=== PATIENT | female | born 1965 | race Caucasian/White ===

== ENCOUNTER → 2017-02-13 | Outpatient (CLI) | payer MEDICAID ==
[~2017-02-13] MED LIST: ALBUTEROL2.5 MG/NEB IH; ALLERGY RELIEF25 MG PO; APAP W/ CODEINE1 TAB PO; ASPIRIN 81MG TA81 MG PO; ATIVAN GENERIC0.5 MG PO; B COMPLEX & B121 TAB PO; BUSPAR 10MG TAB10 MG PO; BUSPIRONE HCL7.5 MG PO; CALCIUM CARBONA1 TAB PO; CIPRO 500MG TA500 MG PO; CITALOPRAM40 MG PO; FLEXERIL10 MG PO; GENTAMICIN3 MG/GM OP; HYDROCODONE/ACE1 TA5 PO; INDOCIN25 M2 PO; LEXAPRO 20 MG T20 MG PO; MEDROL 4MG. DOSE4 MG PO; MULTI VITAMINS1 TAB PO; MULTIVITAMIN1 TA2 PO; NAPROSYN 500MG500 MG PO; NICOTINE PATCH;21 MG TD; NORCO 325 MG-51 TAB PO; OMEPRAZOLE40 MG PO; PERCOCET 5/3251 EACH PO; PHENERGAN25 M3 PO; PREDNISONE 20MG20 MG PO; PREDNISONE 5MG.5 MG PO; PROVENTIL0.09 MG/AC IH; RISAQUAD1 CA1 PO; ROBITUSSIN DM 105 ML PO; SERTRALINE25 MG PO; SIMVASTATIN10 MG PO; SYMBICORT1 AER IH; SYNTHROID0.025 MG PO; TESSALON PERLE100 MG PO; ULTRAM 50 MG TA50 MG PO; VENLAFAXINE HYD75 M1 PO; VIBRAMYCIN 100100 MG PO; VICODIN 5/500 T1 TAB PO; VISTARIL25 MG PO; VITAMIN B12500 MC1 MM; VOLTAREN75 MG PO; ZITHROMAX 250M250 MG PO; ZOLOFT 50MG TAB50 MG PO
== END ==
LOC: SL 20:00
DX: G47.33 Obstructive sleep apnea (adult) (pediatric) (principal); R31.0 Gross hematuria

== ENCOUNTER → 2017-02-16 | Outpatient (CLI) | payer MEDICAID ==
--- NOTE | 2017-02-16 14:02 | RADIOLOGY REPORT PS360 ---
UGI SERIES W/SMALL BOWEL HISTORY: ABD PAIN,NAUSEA, abnormal CT scan showing distended small bowel ORDERING PHYSICIAN: JAI SALDAÑA MD PATIENT AGE: 52 years COMPARISON: None FINDINGS: There are small diverticula within the posterior lateral aspect the esophagus on both sides at C5 level. No hiatal hernia. There is mild spasm of the cricopharyngeus muscle which does subside. The stomach and duodenum have an unremarkable appearance. No ulcer or mass evident. No mucosal abnormalities apparent. There is normal peristalsis. The duodenal C-loop is nondisplaced. Small bowel: Small bowel is normal in caliber. No obstructing lesions. No mucosal abnormalities. The terminal ileum has an unremarkable appearance. FLUOROSCOPY TIME : 4 minutes and 33 seconds. IMPRESSION: 1. Incidental small upper esophageal diverticula. 2. Otherwise negative upper GI and small bowel follow-through
== END ==
LOC: RAD 08:59
DX: R10.9 Unspecified abdominal pain (principal); R11.0 Nausea

== ENCOUNTER 2017-03-12 17:59 | Emergency (ER) | payer MEDICAID ==
[~2017-03-12] VITALS: Ht 157.5 cm; Wt 54.4 kg
--- NOTE | 2017-03-12 18:47 | Emergency Room Report ---
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 N Clinical Suspician of Infection? N Mental Status: 1 - Regular (Normal Baseline) Sepsis Risk:Low Sepsis Risk Have you (or family members/close friends) recently traveled outside the [place]? N If Yes, where/when: Have you had exposure to infectious disease within the past month? N TB? Other? Specify: Fell down steps today and struck right shoulder, right knee, lower back; no neurological sx; no weakness. No SOB. ALLERGIES Coded Allergies: Sulfa (Sulfonamide Antibiotics) (Intermediate, I-RASH 10/23/16) Home Medications Active Scripts Omeprazole (Omeprazole 40MG) 40 MG PO DAILY 30 Days Prov: 04/27/16 Reported Medications Simvastatin 20 MG PO DAILY Lorazepam (Ativan) 1 MG PO BID Levothyroxine Sodium (Synthroid 0.025MG) 0.05 MG PO QHS VENLAFAXINE HCL (Venlafaxine HCl ER) 75 MG PO DAILY #30 History Medical History General CAD? No Angina: No DC: No Hypertension? No Hyperlipidemia? Yes CHF? No DVT? No PE? No COPD? Yes Asthma? No Anemia? No GERD? No Gastric ulcers? No GI Bleed? No Hernia? No Thyroid Problems? No Hypothyroidism? No CVA? No Seizures? No Diabetes? No Insulin Dependent: No Insulin Pump: No Home FSBS? No Renal Insuffiency? No End Stage Renal Disease? No UTI? No Stones? No BPH? No GB Disease: Yes Nephritic Syndrome? No Asplenia? No Hepatitis? No Sickle Cell Disease? No Arthritis? No Migraines? No Cataracts? No Glaucoma? No MRSA? No HIV? No TB? No Anxiety? Yes Depression? Yes Cancer? No More? 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 Family History Family Hx Diabetes No CAD No Hypertension Yes Hyperlipidemia Yes Cancer Yes TB No Social History Smoking Hx Smoker: Current Every Day Smoker Tobacco: Yes Type Cigarettes Packs/day < 1 Pack Alcohol Alcohol: No Review of Systems All Other Systems Reviewed and Negative Musculoskeletal see HPI Psychiatric/Neurological denies no symptoms reported Physical Exam Vital Signs Vital Signs Date Time Temp Pulse Resp B/P Pulse O2 O2 Flow FiO2 Ox Delivery Rate 03/12 1804 98.2 85 16 112/70 98 General Appearance normal appearance, WD/WN, no apparent distress Eye Exam - bilateral eye normal exam, bilateral eye PERRL, bilateral eye EOMI Neck normal inspection, non-tender, supple, full range of motion Respiratory Status Yes: trachea midline, chest symmetrical, non tender chest. No: respiratory distress, tender on palpation, use of accessory muscles, pain on inspiration, pain on expiration, productive cough, non productive cough (mild R shoulder/ scapula pain). Lung Sounds bilateral: normal breath sounds, lungs clear. Cardiovascular normal exam, regular rate/rhythm, no peripheral edema, no gallop, no JVD, no murmur, no rub, normal peripheral pulses Gastrointestinal normal bowel sounds, normal exam, non tender, soft, no organomegaly, no pulsatile mass, no guarding, no rebound Back normal inspection, no vertebral tenderness, bowel/bladder continent, strt leg raising(L)-NML, strt leg raising(R)-NML, diffuse lower lumbar pain Extremities non-tender, normal range of motion, normal inspection, normal capillary refill, pelvis stable, minor abrasion, right knee, with no laxity, deformity or stepoffs; pelvis stable to AP and lateral palpation; no pain over rotator cuff on right but subjectively a little bit of diffuse shoulder pain extending to scapula area with no crepitus, deformities, or stepoffs noted. Strength 5 Upper Ext (L), 5 Upper Ext (R), 5 Lower Ext (L), 5 Lower Ext (R) Neurologic alert, normal exam, no motor/sensory deficits, oriented x 3 Glascow Coma Scale Glascow Coma Scale Response Value EYE response: 4 Spontaneously 4 MOTOR response: 6 OBEYS 6 VERBAL response: 5 Oriented & Converses 5 Total 15 Skin intact, normal color, warm/dry Medical Decision Making LABS/Meds/Orders Pt receiving controlled substance in ED? No Results/Orders Orders Procedure Date/time Status CHEST-PORTABLE 03/12 1851 Active PELVIS AP ONLY 03/12 1809 Active QJD-[id number]-JF-UNI-3 VIEWS 03/12 1808 Active LUMBAR SPINE 5 VIEWS 03/12 1808 Active KNEE-3 VIEWS-RT 03/12 1808 Active XRAY/CT/US XRAY/CT/US XRAY chest, knee, pelvis, shoulder XR interpretation by reviewed by me Xray Results no fracture seen, normal lung inflation shawn (pos DJD; pin R shoulder) Departure Departure Time of Disposition 1920 Disposition DC Home or Self Care(routine) Clinical Impression Primary Impression: Multiple contusions Secondary Impressions: Fall Qualifiers: Encounter type: initial encounter Qualified Code: W19.XXXA - Unspecified fall, initial encounter Condition STABLE Referrals GINNY SHETTY, NEDA (Family) Patient Instructions Contusion Additional Instructions Rx Naproxen, see Neda tomorrow for recheck Discharge Counseling Counseled pt/family regarding diagnosis, test results, medications/RX, home care, follow up needs Prescriptions Current Visit Scripts NAPROXEN (NAPROXEN 500MG TAB) 500 MG PO BIDP PRN pain #20 TAB ED Critical Care Critical Care No at 1928
[2017-03-12] MEDS ORDERED: NAPROXEN SODIU500 MG PO (19:26)
--- NOTE | 2017-03-12 19:45 | RADIOLOGY REPORT PS360 ---
PELVIS AP ONLY HISTORY: Fall with injury and pain FALL ORDERING PHYSICIAN: Franci Pratt MD PATIENT AGE: 52 years COMPARISON: None FINDINGS: No fracture or dislocation is evident. No significant degenerative change. No lytic or blastic change. The SI joints have an unremarkable appearance. Unremarkable soft tissues. Nonspecific density is present in the right lower quadrant and could be due to contrast within diverticulum or calcification. IMPRESSION: No acute finding
--- NOTE | 2017-03-12 19:51 | RADIOLOGY REPORT PS360 ---
FVI-[id number]-MY-UNI-3 VIEWS HISTORY: Pain following injury FALL WITH PAIN ORDERING PHYSICIAN: Franci Pratt MD PATIENT AGE: 52 years COMPARISON: None FINDINGS: No fracture or dislocation. No lytic or blastic change. There is normal mineralization. The joint spaces are well-preserved. No significant degenerative/arthritic changes. No erosive changes evident. An anchor screw is present in the humeral head. There is mild subacromial stenosis. IMPRESSION: 1. No acute finding. 2. Subacromial stenosis with postsurgical change
--- NOTE | 2017-03-12 19:53 | RADIOLOGY REPORT PS360 ---
EXAM: LUMBAR SPINE 5 VIEWS HISTORY: FALL WITH PAIN ORDERING PHYSICIAN: Franci Pratt MD PATIENT AGE: 52 years COMPARISON: None FINDINGS: Normal alignment. No fracture or dislocation. No lytic or blastic change. No significant degenerative change. The disc spaces are preserved. There is anterior angulation of the lower sacrum. This however was present on the previous CT scan of 02/08/2017 IMPRESSION: No acute finding
--- NOTE | 2017-03-12 19:53 | RADIOLOGY REPORT PS360 ---
KNEE-3 VIEWS-RT HISTORY: FALL WITH PAIN ORDERING PHYSICIAN: Franci Pratt MD PATIENT AGE: 52 years COMPARISON: None FINDINGS: No fracture or dislocation. No lytic or blastic change. Normal mineralization. No significant arthritic changes evident. No other significant findings IMPRESSION: Negative Knee
--- NOTE | 2017-03-12 19:54 | RADIOLOGY REPORT PS360 ---
CHEST-PORTABLE HISTORY: Chest pain following injury fell ORDERING PHYSICIAN: Franci Pratt MD PATIENT AGE: 52 years COMPARISON: 10/23/2016 FINDINGS: The cardiomediastinal silhouette and pulmonary vascularity are within normal limits. The lungs are clear without infiltrates, suspicious nodules, or pleural effusions. No acute bony abnormalities. IMPRESSION: Negative chest, no acute finding
[2017-03-12 20:14] VITALS: BP 112/73
== END 2017-03-12 20:15 | disposition home or self-care (01) ==
LOC: ER 17:59
DX: S80.01XA Contusion of right knee, initial encounter (principal); S40.011A Contusion of right shoulder, initial encounter; S30.0XXA Contusion of lower back and pelvis, initial encounter; W10.9XXA Fall (on) (from) unspecified stairs and steps, initial encounter; Y92.9 Unspecified place or not applicable; E78.5 Hyperlipidemia, unspecified; Z79.899 Other long term (current) drug therapy

== ENCOUNTER → 2017-03-29 | Outpatient (CLI) | payer MEDICAID ==
[~2017-03-29] MED LIST changes: +NAPROXEN SODIU500 MG PO
[2017-03-29 18:02] LABS: HEMOGLOBIN 15.2 g/dL (12.2-16.2); LYMPH # 2.1 K/mm3 (0.7-4.5); LYMPH % 29.8 % (10-50.0)
[2017-03-29 18:59] LABS: BUN 9 mg/dL (7-18)
[2017-03-29 19:22] LABS: GFR (ESTIMATED) 105 ML/MIN (59-)
[2017-03-31 08:40] LABS: Folate (Folic Acid) 4.8 ng/mL (>3.0); RA Latex Turbid. <10.0 IU/mL (0.0-13.9); Vitamin B12 270 pg/mL (211-946); Vitamin D, 25-Hydroxy 49.6 ng/mL (30.0-100.0)
[2017-04-01 10:35] LABS: PTT-LA 42.1 sec (0.0-51.9); dRVVT 35.9 sec (0.0-47.0)
[2017-04-01 12:39] LABS: Lupus Reflex Interpretation Comment: (.)
[2017-04-02 14:40] LABS: Anti-DNA (DS) Ab Qn 2 IU/mL (0-9)
[2017-04-03 03:37] LABS: CCP Antibodies IgG/IgA 3 units (0-19)
[2017-04-06 16:40] LABS: Antinuclear Antibodies, IFA Positive (.)
== END ==
LOC: LAB 16:23
PROVIDERS: Physician Assistant
DX: R53.82 Chronic fatigue, unspecified (principal); R60.9 Edema, unspecified; E03.9 Hypothyroidism, unspecified; E55.9 Vitamin D deficiency, unspecified

== ENCOUNTER 2017-04-12 21:13 | Emergency (ER) | payer MEDICAID ==
[~2017-04-12] VITALS: Ht 157.5 cm; Wt 54.4 kg
--- NOTE | 2017-04-12 21:36 | Emergency Room Report ---
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 N Clinical Suspician of Infection? N Mental Status: 1 - Regular (Normal Baseline) Sepsis Risk:Low Sepsis Risk Have you (or family members/close friends) recently traveled outside the [place]? N If Yes, where/when: Have you had exposure to infectious disease within the past month? N TB? Other? Specify: Source patient, RN notes reviewed, old records Exam Limitations no limitations Comment pt with trip injury a couple of days ago with sts and tenderness lt post lower leg and lt foot with no other c/o Cardiac Chest Pain Chest pain indicative of cardiac No Timing/Duration this evening Severity moderate ALLERGIES Coded Allergies: Sulfa (Sulfonamide Antibiotics) (Intermediate, I-RASH 10/23/16) Home Medications Active Scripts Omeprazole (Omeprazole 40MG) 40 MG PO DAILY 30 Days Prov: 04/27/16 Discontinued Scripts NAPROXEN (NAPROXEN 500MG TAB) 500 MG PO BIDP PRN pain #20 TAB Prov: 03/12/17 DC: 04/10/17 0000 Reported Medications Simvastatin 20 MG PO DAILY Lorazepam (Ativan) 1 MG PO BID Levothyroxine Sodium (Synthroid 0.025MG) 0.05 MG PO QHS VENLAFAXINE HCL (Venlafaxine HCl ER) 75 MG PO DAILY #30 History Medical History General CAD? No Angina: No VA: No Hypertension? No Hyperlipidemia? Yes CHF? No DVT? No PE? No COPD? Yes Asthma? No Anemia? No GERD? No Gastric ulcers? No GI Bleed? No Hernia? No Thyroid Problems? No Hypothyroidism? No CVA? No Seizures? No Diabetes? No Insulin Dependent: No Insulin Pump: No Home FSBS? No Renal Insuffiency? No End Stage Renal Disease? No UTI? No Stones? No BPH? No GB Disease: Yes Nephritic Syndrome? No Asplenia? No Hepatitis? No Sickle Cell Disease? No Arthritis? No Migraines? No Cataracts? No Glaucoma? No MRSA? No HIV? No TB? No Anxiety? Yes Depression? Yes Cancer? No More? 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 Respiratory denies cough, denies shortness of breath, denies wheezing Cardiovascular denies chest pain, denies syncope Gastrointestinal denies abdominal pain, denies diarrhea, denies vomiting Genitourinary denies: dysuria, frequency, hesitancy, hematuria. Musculoskeletal see HPI, denies back pain, joint pain, denies joint swelling, denies neck pain Skin denies rash Psychiatric/Neurological denies headache, denies seizure Physical Exam Vital Signs Vital Signs Date Time Temp Pulse Resp B/P Pulse O2 O2 Flow FiO2 Ox Delivery Rate 04/12 2118 98.2 81 18 134/85 97 - WBC >12,000 or <4,000 or 10% bands? 2 or more SIRS Criteria Met? B/P:134/85 MAP:101 Creatinine >2.0? UA output<0.5ml/kg/hr for 2 hrs? Platelet count >100,000? Lactate >2.0mmol/1? INR >1.2 or PTT > than 60 sec? Evidence of Organ Dysfunction? Provider documented clinical suspician of infection? N Sepsis Criteria Count: 0 Sepsis Risk: Low Sepsis Risk General Appearance no apparent distress Eye Exam - bilateral eye PERRL, bilateral eye EOMI Ear, Nose, Throat normal ENT inspection Neck supple Respiratory Status No: respiratory distress. 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 No Results/Orders Orders Procedure Date/time Status LOWER LEG-LT 04/12 2135 Active FOOT-LT-3 VIEWS 04/12 2135 Active XRAY/CT/US XRAY/CT/US XRAY foot, leg XR interpretation by reviewed by me Xray Results no fracture seen Departure Departure Time of Disposition 2201 Disposition DC Home or Self Care(routine) Clinical Impression Primary Impression: Splinter of lower extremity Qualifiers: Encounter type: initial encounter Laterality: left Qualified Code: S80.852A - Superficial foreign body, left lower leg, initial encounter Secondary Impressions: Sprain of foot, left Qualifiers: Encounter type: initial encounter Qualified Code: S93.602A - Unspecified sprain of left foot, initial encounter Condition STABLE Referrals ZECHARIAH TORRES DPM Patient Instructions DI for Foot Sprain Additional Instructions wt bearing as all and see podiatry and pcp for follow up Discharge Counseling Counseled pt/family regarding diagnosis, test results, follow up needs ED Critical Care Critical Care No at 2208
--- NOTE | 2017-04-12 21:36 | Emergency Room Report ---
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 N Clinical Suspician of Infection? N Mental Status: 1 - Regular (Normal Baseline) Sepsis Risk:Low Sepsis Risk Have you (or family members/close friends) recently traveled outside the [place]? N If Yes, where/when: Have you had exposure to infectious disease within the past month? N TB? Other? Specify: Source patient, RN notes reviewed, old records Exam Limitations no limitations Comment pt with trip injury a couple of days ago with sts and tenderness lt post lower leg and lt foot with no other c/o Cardiac Chest Pain Chest pain indicative of cardiac No Timing/Duration this evening Severity moderate ALLERGIES Coded Allergies: Sulfa (Sulfonamide Antibiotics) (Intermediate, I-RASH 10/23/16) Home Medications Active Scripts Omeprazole (Omeprazole 40MG) 40 MG PO DAILY 30 Days Prov: 04/27/16 Discontinued Scripts NAPROXEN (NAPROXEN 500MG TAB) 500 MG PO BIDP PRN pain #20 TAB Prov: 03/12/17 DC: 04/10/17 0000 Reported Medications Simvastatin 20 MG PO DAILY Lorazepam (Ativan) 1 MG PO BID Levothyroxine Sodium (Synthroid 0.025MG) 0.05 MG PO QHS VENLAFAXINE HCL (Venlafaxine HCl ER) 75 MG PO DAILY #30 History Medical History General CAD? No Angina: No MS: No Hypertension? No Hyperlipidemia? Yes CHF? No DVT? No PE? No COPD? Yes Asthma? No Anemia? No GERD? No Gastric ulcers? No GI Bleed? No Hernia? No Thyroid Problems? No Hypothyroidism? No CVA? No Seizures? No Diabetes? No Insulin Dependent: No Insulin Pump: No Home FSBS? No Renal Insuffiency? No End Stage Renal Disease? No UTI? No Stones? No BPH? No GB Disease: Yes Nephritic Syndrome? No Asplenia? No Hepatitis? No Sickle Cell Disease? No Arthritis? No Migraines? No Cataracts? No Glaucoma? No MRSA? No HIV? No TB? No Anxiety? Yes Depression? Yes Cancer? No More? 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 Respiratory denies cough, denies shortness of breath, denies wheezing Cardiovascular denies chest pain, denies syncope Gastrointestinal denies abdominal pain, denies diarrhea, denies vomiting Genitourinary denies: dysuria, frequency, hesitancy, hematuria. Musculoskeletal see HPI, denies back pain, joint pain, denies joint swelling, denies neck pain Skin denies rash Psychiatric/Neurological denies headache, denies seizure Physical Exam Vital Signs Vital Signs Date Time Temp Pulse Resp B/P Pulse O2 O2 Flow FiO2 Ox Delivery Rate 04/12 2118 98.2 81 18 134/85 97 - WBC >12,000 or <4,000 or 10% bands? 2 or more SIRS Criteria Met? B/P:134/85 MAP:101 Creatinine >2.0? UA output<0.5ml/kg/hr for 2 hrs? Platelet count >100,000? Lactate >2.0mmol/1? INR >1.2 or PTT > than 60 sec? Evidence of Organ Dysfunction? Provider documented clinical suspician of infection? N Sepsis Criteria Count: 0 Sepsis Risk: Low Sepsis Risk General Appearance no apparent distress Eye Exam - bilateral eye PERRL, bilateral eye EOMI Ear, Nose, Throat normal ENT inspection Neck supple Respiratory Status No: respiratory distress. 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 No Results/Orders Orders Procedure Date/time Status LOWER LEG-LT 04/12 2135 Active FOOT-LT-3 VIEWS 04/12 2135 Active XRAY/CT/US XRAY/CT/US XRAY foot, leg XR interpretation by reviewed by me Xray Results no fracture seen Departure Departure Time of Disposition 2201 Disposition DC Home or Self Care(routine) Clinical Impression Primary Impression: Splinter of lower extremity Qualifiers: Encounter type: initial encounter Laterality: left Qualified Code: S80.852A - Superficial foreign body, left lower leg, initial encounter Secondary Impressions: Sprain of foot, left Qualifiers: Encounter type: initial encounter Qualified Code: S93.602A - Unspecified sprain of left foot, initial encounter Condition STABLE Referrals ZECHARIAH TRORES DPM Patient Instructions DI for Foot Sprain Additional Instructions wt bearing as all and see podiatry and pcp for follow up Discharge Counseling Counseled pt/family regarding diagnosis, test results, follow up needs ED Critical Care Critical Care No at 2208
[2017-04-12 22:32] VITALS: BP 134/85
--- NOTE | 2017-04-13 04:19 | RADIOLOGY REPORT PS360 ---
LOWER LEG-LT HISTORY: Posttraumatic pain injury ORDERING PHYSICIAN: Patrick Anderson MD PATIENT AGE: 52 years COMPARISON: None FINDINGS: No fracture or dislocation. No lytic or blastic change. There is normal mineralization. The joint spaces are well-preserved. No significant degenerative/arthritic changes. No erosive changes evident. IMPRESSION: Negative, no acute finding
--- NOTE | 2017-04-13 04:20 | RADIOLOGY REPORT PS360 ---
FOOT-LT-3 VIEWS HISTORY: Posttraumatic pain injury ORDERING PHYSICIAN: Patrick Anderson MD PATIENT AGE: 52 years COMPARISON: None FINDINGS: No fracture or dislocation. No lytic or blastic change. There is normal mineralization.. The joint spaces are well-preserved. No significant degenerative/arthritic changes. No erosive changes evident. IMPRESSION: Negative left foot, no acute finding
--- OUTSIDE RECORDS SUMMARY | 2017-04-14 18:19 | External Medical Summary Rpt | CCD ---
Author Author , RORY VALADEZ Address Unknown Phone Immunization Name Date Rout CVX Reac Dose Comm Prov Is Faci e tion ent ider Refu lity Give sed n Infl 09-2 Intr 0.5 Hist GSHA No GSHA uenz 8-20 amus mL oric NE NE a 17 cula al Quad r Info rmat W/Pr ion es - Sour ce Unsp ecif ied PCV1 09-2 Intr 133 0.5 Hist GSHA No GSHA 3 8-20 amus mL oric NE NE 17 cula al r Info rmat ion - Sour ce Unsp ecif ied
--- OUTSIDE RECORDS SUMMARY | 2017-04-14 18:19 | External Medical Summary Rpt | CCD ---
Demographics Preferred Language Austrian Marital Status Unknown Mormonism Affiliation Unknown Race Unknown Ethnic Group Unknown Author Author NALLELY Address Unknown Phone [email or web address] Purpose Continuity of Care Document - through 2016
--- OUTSIDE RECORDS SUMMARY | 2017-04-14 18:19 | External Medical Summary Rpt | CCD ---
Author Author , RORY VALADEZ Address Unknown Phone [email or web address] Immunization Name Date Rout CVX Reac Dose [...]
--- OUTSIDE RECORDS SUMMARY | 2017-04-14 18:19 | External Medical Summary Rpt | CCD ---
Author Author , RORY VALADEZ Address Unknown Phone Care Team Providers Care Manual Qa Tester Name Role Phone Nimesh Tyler MD, Unavailable Unavailable Nimesh Anderson MD, Unavailable Unavailable Patrick Anderson MD Purpose Continuity of Care Document - 10-15-2012 through 2016 Problems Code Diagnosis DOS Provider Status 305.1 305.1 12-31-2012 [place] TOBACCO USE [facility] 786.50 786.50 12-31-2012 [place] CHEST PAIN [facility] 511.0 511.0 10-15-2012 [place] PLEURISY [facility] W/O [facility] OR TB Allergies, Adverse Reactions, Alerts Type Drug Allergy Adverse Reaction to Substance Substance Reaction Severity SULFA (sulfonamide) I-RASH Unknown Medications Na ND Rx Da Fi Fi Am Da Di Ph RX Ph St me C No te ll ll ou ys ag ar # ys at rm s nt no ma ic us Or Da si cy ia de te s n re d 63 07 0 No PI 73 -0 RI 90 2- Lo N 43 20 ng 81 40 13 er 1 MG Ac ti CH ve EW AB LE TA BL ET Vital Signs 12-31-2012 03:47 Name Value Interpretat Reference Comment ion Range BP 75 mm[Hg] Diastolic BP Systolic 114 mm[Hg] Heart 71 /min Rate/Pulse O2% 97 % Respiratory 20 /min Rate 12-31-2012 00:41 Name Value Interpretat Reference Comment ion Range BP 89 mm[Hg] Diastolic BP Systolic 141 mm[Hg] Heart 70 /min Rate/Pulse O2% 98 % Respiratory 20 /min Rate 10-15-2012 18:48 Name Value Interpretat Reference Comment ion Range Body 98.7 [degF] Temperature BP 73 mm[Hg] Diastolic BP Systolic 123 mm[Hg] Heart 72 /min Rate/Pulse O2% 92 % Respiratory 20 /min Rate 10-15-2012 18:27 Name Value Interpretat Reference Comment ion Range BP 81 mm[Hg] Diastolic BP Systolic 121 mm[Hg] Heart 88 /min Rate/Pulse O2% 94 % Respiratory 20 /min Rate Results Labs Lab Lab Date Result Refere Interp Status Commen Order Detail nces retati t Range on Serum or plasma 25-hydroxyvitamin D malik (03-29-2017 16:25) Serum 2 = 49.6 30.0-10 complet or 017 ng/mL 0.0 ed plasma 16:25 25-hydr oxyvita min D malik Comment: Vitamin D deficiency has been defined by the [place] of Comment: Medicine and an Endocrine Society practice guideline as a Comment: level of serum 25-OH vitamin D less than 20 ng/mL (1,2). Comment: The Endocrine Society went on to further define vitamin D Comment: insufficiency as a level between 21 and 29 ng/mL (2). Comment: 1. IOM ([place] of Medicine). 2010. Dietary reference Comment: intakes for calcium and D. [place]: The Comment: [employer]. Comment: 2. Bayron MF, Gorge WORRELL, Teena GOODE, et al. Comment: Evaluation, treatment, and prevention of vitamin D Comment: deficiency: an Endocrine Society clinical practice Comment: guideline. JCEM. 2010; 96(7):1911-30. Serum or plasma rheumatoid factor measur (03-29-2017 16:25) Serum < 10.0 0.0-13. complet or 017 IU/mL 9 ed plasma 16:25 rheumat oid factor measur Lupus Anticoagulant Reflex (03-29-2017 16:25) Lupus = 42.1 0.0-51. complet anticoa 017 sec 9 ed gulant- 16:25 sensiti ve activat ed Lupus Comment . complet anticoa 017 : ed gulant 16:25 Comment [interp : L retatio n] in Comment: No lupus anticoagulant was detected. Comment: Performed at: [facility] Comment: [address], [place] [id number] Comment: Process Improvement Engineer: John Villafana MD, Phone: [phone] Dilute = 35.9 0.0-47. complet Vinod 017 sec 0 ed viper 16:25 venom time Comment: Performed at: [facility] Comment: [address], [place] [id number] Comment: Process Improvement Engineer: John Villafana MD, Phone: [phone] Serum or plasma folate measurement (mass (03-29-2017 16:25) Serum = 4.8 >3.0 complet or 017 ng/mL ed plasma 16:25 folate measure ment (mass Comment: Comment: A serum folate concentration of less than 3.1 ng/mL is Comment: considered to represent clinical deficiency. CCP IgG + IgA serum ROLAND (03-29-2017 16:25) CCP IgG = 3 0-19 complet + IgA 017 units ed serum 16:25 ROLAND Comment: Negative <20 Comment: Weak positive 20 - 39 Comment: Moderate positive 40 - 59 Comment: Strong positive >59 Comment: Performed at: [facility] Comment: [address], [place] [id number] Comment: Process Improvement Engineer: John Villafana MD, Phone: [phone] Vitamin B12 ser/plas (03-29-2017 16:25) Vitamin = 270 211-946 complet B12 017 pg/mL ed ser/jl 16:25 s Comment: Performed at: [facility] Comment: [address], [place] [id number] Comment: Process Improvement Engineer: Vega Burdick PhD, Phone: [phone] Antinuclear Antibodies, IFA (03-29-2017 16:25) Serum = . complet nuclear 017 Positiv ed 16:25 e antibod y titer by immunof l Comment: Negative <1:80 Comment: Borderline 1:80 Comment: Positive >1:80 Serum 1 : 640 . complet speckle 017 ed d 16:25 pattern antinuc lear antib Comment: Dense Fine Speckled pattern is noted. This pattern suggests Comment: the presence of DFS70 antibody which has a low prevalence Comment: in systemic autoimmune rheumatic diseases. Note: Comment . complet 017 ed 16:25 Comment: Comment: A positive DARIN result may occur in healthy individuals (low Comment: titer) or be associated with a variety of diseases. See Comment: interpretation chart which is not all inclusive: Comment: Comment: Pattern Antigen Detected Suggested Disease Association Comment: -------- Comment: Homogeneous DNA(ds,ss), SLE - High titers Comment: Nucleosomes, Comment: Histones Drug-induced SLE Comment: -------- Comment: Speckled Sm, TRAY ROOM WORKER, SCL-70, SLE,MCTD,PSS (diffuse form), Comment: SS-A/SS-B Sjogrens Comment: -------- Comment: Nucleolar SCL-70, PM-1/SCL High titers Scleroderma, Comment: PM/DM Comment: -------- Comment: Centromere Centromere PSS (limited form) w/Crest Comment: syndrome variable Comment: -------- Comment: Nuclear Dot [id number] Primary Biliary Cirrhosis Comment: -------- Comment: Nuclear GP210, Primary Biliary Cirrhosis Comment: Membrane doris A,B,C Comment: -------- Comment: Performed at: [facility] Comment: [address] [place] [address], [place] [id number] Comment: Process Improvement Engineer: Vega Burdick PhD, Phone: [phone] Serum DNA double strand antibody assay ( (03-29-2017 16:25) Serum = 2 0-9 complet DNA 017 IU/mL ed double 16:25 strand antibod y assay ( Comment: Negative <5 Comment: Equivocal 5 - 9 Comment: Positive >9 Comment: Performed at: [facility] Comment: [address], [place] [id number] Comment: Process Improvement Engineer: Vega Burdick PhD, Phone: [phone] COMPREHENSIVE METABOLIC PANEL (12-31-2012 00:19) Glucose 123 74-106 complet 013 mg/dL ed Bld-mCn 00:19 c BUN 14 7-18 complet Bld-mCn 013 mg/dL ed c 00:19 Creat 0.7 0.6-1.0 complet SerPl-m 013 mg/dL ed Cnc 00:19 ESTIMAT 85 50-200 complet ED 013 ML/MIN ed CREATIN 00:19 INE CLEARAN CE GFR 90 59- complet (ESTIMA 013 ML/MIN ed KAREL) 00:19 Sodium 137 136-145 complet SerPl-s 013 mmoL/L ed Cnc 00:19 Potassi 3.7 3.5-5.1 complet um 013 mmoL/L ed SerPl-s 00:19 Cnc Chlorid 102 98-107 complet e 013 mmoL/L ed SerPl-s 00:19 Cnc CO2 27 21.0-32 complet SerPl-s 013 mmoL/L .0 ed Cnc 00:19 Calcium 8.1 8.5-10. complet 013 mg/dL 1 ed SerPl-m 00:19 Cnc Prot 07-02-2 6.1 6.4-8.2 complet SerPl-m 013 gm/dL ed Cnc 00:19 Albumin -02-2 3.6 3.4-5.0 complet 013 gm/dL ed SerPl-m 00:19 Cnc Globuli 12-31-2 2.5 1.3-3.2 complet n 013 gm/dL ed Ser-mCn 00:19 c Albumin 12-31-2 1.4 UNK 1.1-1.8 complet /Glob 013 ed SerPl-m 00:19 Rto Bilirub 12-31-2 0.2 0.2-1.0 complet 013 mg/dL ed SerPl-m 00:19 Cnc AST 12-31-2 17 U/L 15-37 complet SerPl-c 013 ed Cnc 00:19 ALT 12-31-2 41 U/L 30-65 complet SerPl-c 013 ed Cnc 00:19 ALP --2 81 U/L 50-136 complet SerPl-c 013 ed Cnc 00:19 Amylase SerPl-cCnc (12-31-2012 00:19) Amylase 12-31-2 77 U/L 25-115 complet 013 ed SerPl-c 00:19 Cnc LIPASE (12-31-2012 00:19) LIPASE 12-31-2 172 U/L 73-393 complet 013 ed 00:19 CBC with AUTO DIFF (12-31-2012 00:19) WBC # 07-02-2 10.0 4.8-10. complet Bld 013 K/MM3 8 ed Auto 00:19 RBC # 07-02-2 4.14 4.2-5.4 complet Bld 013 M/mm3 ed Auto 00:19 Hgb 07-02-2 13.5 12.2-16 complet Bld-mCn 013 g/dL .2 ed c 00:19 Hct Fr 12-31-2 40.0 % 37.0-47 complet Bld 013 .0 ed 00:19 MCV RBC 07--2 96.6 fl 82.2-97 complet 013 .8 ed 00:19 MCH RBC 07-02-2 32.6 pg 27-31.2 complet Qn 013 ed Auto 00:19 MEAN 02-2 33.8 31.8-35 complet CORPUSC 013 g/dl .4 ed ULAR 00:19 HGB CONC RDW RBC 07-02-2 13.3 % 11.5-17 complet Auto 013 .5 ed 00:19 Platele 07-02-2 276 142-424 complet t Bld 013 K/mm3 ed Ql 00:19 Manual MEAN 07-02-2 7.0 fl 7.4-10. complet PLATELE 013 4 ed T 00:19 VOLUME Granulo 07-02-2 68.8 % 37.0-80 complet cytes 013 .0 ed Fr Bld 00:19 Auto LYMPH % 07-02-2 23.4 % 10-50.0 complet 013 ed 00:19 Monocyt 07-02-2 6.0 % 1.7-9.3 complet es Fr 013 ed Bld 00:19 Auto Eosinop 07-02-2 1.5 % 0.1-12. complet hil Fr 013 0 ed Bld 00:19 Auto Basophi 07-02-2 0.4 % 0.1-2.0 complet ls Fr 013 ed Bld 00:19 Auto Granulo 07-02-2 6.9 1.8-7.8 complet cytes # 013 K/mm3 ed Bld 00:19 Auto Lymphoc 07-02-2 2.4 0.7-4.5 complet ytes Fr 013 K/mm3 ed Bld 00:19 Auto Monocyt 07-02-2 0.6 0.1-1.0 complet es # 013 K/mm3 ed Bld 00:19 Auto Eosinop 07-02-2 0.2 0.0-0.4 complet hil # 013 K/mm3 ed Bld 00:19 Auto Basophi 07-02-2 0.0 0-0.2 complet ls # 013 K/MM3 ed Bld 00:19 Auto URINALYSIS/COMPLETE (10-15-2012 17:35) URINE -16-2 YELLOW YELLOW complet COLOR 013 ed 17:35 URINE -16-2 CLEAR CLEAR complet APPEARA 013 ed NCE 17:35 URINE -16-2 NEGATIV NEG complet GLUCOSE 013 E ed - 17:35 DIPSTIC K URINE -16-2 NEGATIV NEG complet BILIRUB 013 E ed IN - 17:35 DIPSTIC K URINE -16-2 NEGATIV NEG complet KETONE 013 E mg/dL ed 17:35 URINE 04-16-2 1.020 1.005-1 complet SPECIFI 013 UNK .030 ed C 17:35 GRAVITY URINE 16-2 TRACE-I NEG complet BLOOD 013 NTACT ed 17:35 URINE -16-2 6.0 UNK 5.0-8.5 complet PH 013 ed 17:35 URINE -16-2 NEGATIV NEG complet PROTEIN 013 E mg/dL ed - 17:35 DIPSTIC K URINE 16-2 0.2 NEG complet UROBILI 013 E.U./dL ed NOGEN - 17:35 DIPSTIC K URINE 16-2 NEGATIV NEG complet NITRATE 013 E ed - 17:35 DIPSTIC K URINE 16-2 NEGATIV NEG complet LEUK 013 E ed ESTERAS 17:35 E URINE 16-2 OCC 0 complet RBC 013 rbc/hpf ed 17:35 URINE 16-2 3-5 0-5 complet SQUAMOU 013 #/hpf ed S CELLS 17:35 URINE 16-2 TRACE O complet BACTERI 013 ed A 17:35 Encounters Encounter Start End Date Code Location Performer Type Date Emergency ROMAINE Anderson MD (ER) 3 00:05 3 03:55 [facility] Emergency ROMAINE Tyler MD (ER) 3 17:56 3 18:51 [facility]
--- OUTSIDE RECORDS SUMMARY | 2017-04-14 18:19 | External Medical Summary Rpt | CCD ---
Author Author , RORY VALADEZ Address Unknown Phone [email or web address] Care Team Providers Care Field Cane Scaler Helper Name Role Phone Nimesh Tyler MD, Unavailable Unavailable Nimesh Anderson MD, Unavailable Unavailable Patrick Anderson MD Purpose Continuity of Care Document - 10-15-2012 through 2016 Problems Code Diagnosis DOS Provider Status 305.1 305.1 12-31-2012 [place] TOBACCO USE [facility] 786.50 786.50 12-31-2012 [place] CHEST PAIN [facility] 511.0 511.0 10-15-2012 [place] PLEURISY [facility] W/O [facility] OR TB Allergies, Adverse Reactions, Alerts Type [...] D deficiency has been defined by the [place] of Comment: Medicine and an Endocrine Society practice guideline as a Comment: level of serum 25-OH vitamin D less than 20 ng/mL (1,2). Comment: The Endocrine Society went on to further define vitamin D Comment: insufficiency as a level between 21 and 29 ng/mL (2). Comment: 1. IOM ([place] of Medicine). 2010. Dietary reference Comment: intakes for calcium and D. [place]: The Comment: [employer]. Comment: 2. Bayron MF, Gorge WORRELL, [...] lupus anticoagulant was detected. Comment: Performed at: [facility] Comment: [address], [place] [id number] Comment: Lamination Inspector: John Villafana MD, Phone: [phone] Dilute = 35.9 0.0-47. complet Vinod 017 sec 0 ed viper 16:25 venom time Comment: Performed at: [facility] Comment: [address], [place] [id number] Comment: Lamination Inspector: John Villafana MD, Phone: [phone] Serum or plasma folate measurement (mass (03-29-2017 [...] Comment: Strong positive >59 Comment: Performed at: [facility] Comment: [address], [place] [id number] Comment: Lamination Inspector: John Villafana MD, Phone: [phone] Vitamin B12 ser/plas (03-29-2017 16:25) Vitamin = 270 211-946 complet B12 017 pg/mL ed ser/jl 16:25 s Comment: Performed at: [facility] Comment: [address], [place] [id number] Comment: Lamination Inspector: Vega Burdick PhD, Phone: [phone] Antinuclear Antibodies, IFA (03-29-2017 16:25) Serum = [...] Drug-induced SLE Comment: -------- Comment: Speckled Sm, HOLD WORKER, SCL-70, SLE,MCTD,PSS (diffuse form), Comment: SS-A/SS-B Sjogrens Comment: -------- Comment: Nucleolar SCL-70, PM-1/SCL High titers Scleroderma, Comment: PM/DM Comment: -------- Comment: Centromere Centromere PSS (limited form) w/Crest Comment: syndrome variable Comment: -------- Comment: Nuclear Dot Sp100,[id number] Primary Biliary Cirrhosis Comment: -------- Comment: Nuclear GP210, Primary Biliary Cirrhosis Comment: Membrane doris A,B,C Comment: -------- Comment: Performed at: [facility] Comment: [address], [place] [id number] Comment: Lamination Inspector: Vega Burdick PhD, Phone: [phone] Serum DNA double strand antibody assay ( (03-29-2017 16:25) Serum = 2 0-9 complet DNA 017 IU/mL ed double 16:25 strand antibod y assay ( Comment: Negative <5 Comment: Equivocal 5 - 9 Comment: Positive >9 Comment: Performed at: [facility] Comment: [address], [place] [id number] Comment: Lamination Inspector: Vega Burdick PhD, Phone: [phone] COMPREHENSIVE METABOLIC PANEL (12-31-2012 00:19) Glucose 123 [...] Anderson MD (ER) 3 00:05 3 03:55 [facility] ROMAINE Tyler MD (ER) 3 17:56 3 18:51 [facility]
--- OUTSIDE RECORDS SUMMARY | 2017-04-14 18:19 | External Medical Summary Rpt | CCD ---
Demographics Preferred Language Somali Marital Status Unknown Roman Catholic Affiliation Unknown Race Unknown Ethnic Group Unknown Author Author NALLELY Address Unknown Phone [email or web address] Purpose Continuity of Care Document - through 2016
--- OUTSIDE RECORDS SUMMARY | 2017-04-14 18:20 | External Medical Summary Rpt ---
Author Author RORY Kendall, [email or web address] Organization [employer] Address Unknown Phone Unavailable Results CBC W Auto Differential panel in Blood Observa Value Referen Units Interpr Notes Date tion ce etation Range Granulocy 1.8 - 7.8 K/mm3 Normal No Sep 28 lisa informati 2017 4:25 [#/volume on in PM ] in source Blood by data Automated count Granulocy 37.0 - % Normal No Sep 28 lisa/100 80.0 informati 2017 4:25 leukocyte on in PM s in source Blood by data Automated count Hematocri 37.0 - % Normal No Sep 28 t [Volume 47.0 informati 2017 4:25 on in PM Fraction] source of Blood data Hemoglobi 12.2 - g/dL Normal No Sep 28 n 16.2 informati 2017 4:25 [Mass/vol on in PM ume] in source Blood data Lymphocyt 0.7 - 4.5 K/mm3 Normal No Sep 28 es informati 2017 4:25 [#/volume on in PM ] in source Unspecifi data ed specimen by Automated count Lymphocyt 10 - 50.0 % Normal No Sep 28 es informati 2017 4:25 [#/volume on in PM ] in source Unspecifi data ed specimen by Automated count Erythrocy 27 - 31.2 pg High No Sep 28 te mean informati 2017 4:25 corpuscul on in PM ar source hemoglobi data n [Entitic mass] Erythrocy 31.8 - g/dl Normal No Sep 28 te mean 35.4 informati 2017 4:25 corpuscul on in PM ar source hemoglobi data n concentra tion [Mass/vol ume] by Automated count Erythrocy 82.2 - fL Normal No Sep 28 te mean 97.8 informati 2017 4:25 corpuscul on in PM ar volume source [Entitic data volume] by Automated count Monocytes 0.1 - 1.0 K/mm3 Normal No Sep 28 informati 2016 4:25 [#/volume on in PM ] in source Blood by data Automated count Monocytes 1.7 - 9.3 % Normal No Mar 29 informati 2016 4:25 leukocyte on in PM s in source Blood by data Automated count Platelets 142 - 424 K/mm3 Normal No Mar 28 informati 2016 4:25 [#/volume on in PM ] in source Blood data Erythrocy 4.2 - 5.4 M/mm3 Normal No Mar 29 lisa informati 2016 4:25 [#/volume on in PM ] in source Amniotic data fluid Erythrocy 11.5 - % Normal No Mar 29 te 17.5 informati 2016 4:25 distribut on in PM ion width source [Entitic data volume] by Automated count Leukocyte 4.8 - K/mm3 Normal No Mar 28 s 10.8 informati 2016 4:25 [#/volume on in PM ] in source Blood data Erythrocyte sedimentation rate by Westergren method Observa Value Referen Units Interpr Notes Date tion ce etation Range Erythrocy 0 - 30 mm/hr Normal No Mar 29 te informati 2016 4:25 sedimenta on in PM tion rate source by data Westergre n method CBC W Auto Differential panel in Blood Observa Value Referen Units Interpr Notes Date tion ce etation Range Basophils 0 - 0.2 K/MM3 Normal No Feb 08 informati 2016 6:25 [#/volume on in PM ] in source Blood by data Automated count Basophils 0.1 - 2.0 % Normal No Feb 08 informati 2016 6:25 leukocyte on in PM s in source Blood by data Automated count Eosinophi 0.0 - 0.4 K/mm3 Normal No Feb 08 ls informati 2016 6:25 [#/volume on in PM ] in source Blood by data Automated count Eosinophi 0.1 - % Normal No Feb 08 ls/100 12.0 informati 2016 6:25 leukocyte on in PM s in source Blood by data Automated count Granulocy 1.8 - 7.8 K/mm3 Normal No Feb 08 lisa informati 2016 6:25 [#/volume on in PM ] in source Blood by data Automated count Granulocy 37.0 - % Normal No Feb 08 lisa/100 80.0 informati 2016 6:25 leukocyte on in PM s in source Blood by data Automated count Hematocri 37.0 - % Normal No Feb 08 t [Volume 47.0 informati 2017 6:25 on in PM Fraction] source of Blood data Hemoglobi 12.2 - g/dL Normal No Feb 08 n 16.2 informati 2017 6:25 [Mass/vol on in PM ume] in source Blood data Lymphocyt 0.7 - 4.5 K/mm3 Normal No Feb 08 es informati 2016 6:25 [#/volume on in PM ] in source Unspecifi data ed specimen by Automated count Lymphocyt 10 - 50.0 % Normal No Feb 08 es informati 2016 6:25 [#/volume on in PM ] in source Unspecifi data ed specimen by Automated count Erythrocy 27 - 31.2 pg High No Feb 08 te mean informati 2017 6:25 corpuscul on in PM ar source hemoglobi data n [Entitic mass] Erythrocy 31.8 - g/dl Normal No Feb 08 te mean 35.4 informati 2017 6:25 corpuscul on in PM ar source hemoglobi data n concentra tion [Mass/vol ume] by Automated count Erythrocy 82.2 - fl Normal No Feb 08 te mean 97.8 informati 2017 6:25 corpuscul on in PM ar volume source [Entitic data volume] by Automated count Monocytes 0.1 - 1.0 K/mm3 Normal No Feb 08 informati 2017 6:25 [#/volume on in PM ] in source Blood by data Automated count Monocytes 1.7 - 9.3 % Normal No Jan 10 /100 informati 2017 6:25 leukocyte on in PM s in source Blood by data Automated count Platelet 7.4 - fl Normal No Feb 08 mean 10.4 informati 2017 6:25 volume on in PM [Entitic source volume] data in Blood by Automated count Platelets 142 - 424 K/mm3 No No Feb 08 informati informati 2017 6:25 [#/volume on in on in PM ] in source source Blood data data Erythrocy 4.2 - 5.4 M/mm3 Normal No Jan 10 lisa informati 2017 6:25 [#/volume on in PM ] in source Amniotic data fluid Erythrocy 11.5 - % Normal No Feb 08 te 17.5 informati 2017 6:25 distribut on in PM ion width source [Entitic data volume] by Automated count Leukocyte 4.8 - K/MM3 Normal No Feb 08 s 10.8 informati 2016 6:25 [#/volume on in PM ] in source Blood data Amylase [Enzymatic activity/volume] in Serum or Plasma Observa Value Referen Units Interpr Notes Date tion ce etation Range Amylase 25 - 115 U/L Normal No Feb 08 [Enzymati informati 2017 6:25 c on in PM activity/ source volume] data in Serum or Plasma Comprehensive metabolic 2000 panel in Serum or Plasma Observa Value Referen Units Interpr Notes Date tion ce etation Range Albumin/G 1.1 - 1.8 No Low No Feb 08 lobulin informati informati 2017 6:25 [Mass on in on in PM ratio] in source source Serum or data data Plasma Albumin 3.4 - 5.0 gm/dL Normal No Feb 08 [Mass/vol informati 2017 6:25 ume] in on in PM Serum or source Plasma data Alkaline 46 - 116 U/L Normal No Feb 08 phosphata informati 2017 6:25 se on in PM [Enzymati source c data activity/ volume] in Serum or Plasma Bilirubin 0.2 - 1.0 mg/dL Normal No Feb 08 .total informati 2017 6:25 [Mass/vol on in PM ume] in source Serum or data Plasma Urea 7 - 18 mg/dL Normal No Feb 08 nitrogen informati 2017 6:25 [Mass/vol on in PM ume] in source Serum or data Plasma Calcium 8.5 - mg/dL Normal No Feb 08 [Mass/vol 10.1 informati 2017 6:25 ume] in on in PM Serum or source Plasma data Chloride 98 - 107 mmoL/L Normal No Feb 08 [Moles/vo informati 2017 6:25 lume] in on in PM Serum or source Plasma data Carbon 21.0 - mmoL/L Normal No Feb 08 dioxide, 32.0 informati 2017 6:25 total on in PM [Moles/vo source lume] in data Serum or Plasma Creatinin 0.55 - mg/dL Normal No Feb 08 e 1.02 informati 2017 6:25 [Mass/vol on in PM ume] in source Serum or data Plasma Creatinin 50 - 200 ML/MIN Normal No Feb 08 e renal informati 2017 6:25 clearance on in PM source predicted data by Cockcroft -Gault formula Estimated 59- ML/MIN No REFERENCE Feb 08 informati RANGE: 2017 6:25 glomerula on in >60 PM r source ML/MIN/1. filtratio data 73 SQUARE n rate METERSIf (GF this patient is -A merican, then multiply theresult by 1.210. Globulin 1.3 - 3.2 gm/dL High No Feb 08 [Mass/vol informati 2016 6:25 ume] in on in PM Serum source data Glucose 74 - 106 mg/dL Normal No Feb 08 [Mass/vol informati 2016 6:25 ume] in on in PM Serum or source Plasma data Potassium 3.5 - 5.1 mmoL/L Low No Feb 08 informati 2016 6:25 [Moles/vo on in PM lume] in source Serum or data Plasma Sodium 136 - 145 mmoL/L Normal No Feb 08 [Moles/vo informati 2016 6:25 lume] in on in PM Serum or source Plasma data Aspartate 15 - 37 U/L Normal No Feb 08 informati 2016 6:25 aminotran on in PM sferase source [Enzymati data c activity/ volume] in Serum or Plasma Alanine 12 - 78 U/L Normal No Feb 08 aminotran informati 2016 6:25 sferase on in PM [Enzymati source c data activity/ volume] in Serum or Plasma Protein 6.4 - 8.2 gm/dL Normal No Feb 08 [Mass/vol informati 2017 6:25 ume] in on in PM Serum or source Plasma data Lipase [Enzymatic activity/volume] in Serum or Plasma Observa Value Referen Units Interpr Notes Date tion ce etation Range Lipase 73 - 393 U/L Normal No Feb 08 [Enzymati informati 2017 6:25 c on in PM activity/ source volume] data in Serum or Plasma Cobalamin (Vitamin B12) [Mass/volume] in Serum Observa Value Referen Units Interpr Notes Date tion ce etation Range Cobalamin 211 - 946 pg/mL No Performed Jan 11 (Vitamin informati at: CB 2016 3:29 B12) on in - [facility] PM [Mass/vol source ume] in data [place] [address] [place] [id number] Pipe Foreman: Vega Burdick PhD, Phone: [phone] 8:ANTOINETTE MIN B12 previousl y reported as: 342 Folate [Mass/volume] in Serum or Plasma Observa Value Referen Units Interpr Notes Date tion ce etation Range Folate >3.0 ng/mL No A serum Jan 11 [Mass/vol informati folate 2017 3:29 ume] in on in concentra PM Serum or source tion of Plasma data less than 3.1 ng/mL isconside red to represent clinical deficienc y.1947:KENNETH TE previousl y reported as: 4.3 25-Hydroxyvitamin D [Mass/volume] in Serum or Plasma Observa Value Referen Units Interpr Notes Date tion ce etation Range 25-Hydrox 30.0 - ng/mL Low Vitamin D Jan 11 yvitamin 100.0 2016 3:29 D deficienc PM [Mass/vol y has ume] in been Serum or defined Plasma by the [place] [facility] and an Endocrine Society practice guideline as alevel of serum 25-OH vitamin D less than 20 ng/mL (1,2).The Endocrine Society went on to further define vitamin Dinsuffic iency as a level between 21 and 29 ng/mL (2).1. IOM (Institut e of Medicine) . 2010. Dietary reference intakes for calcium and D. [place]: [employer].2. Bayron MF, [place] NC, Mary Velazco GOODE, et al.Evalua tion, treatment , and preventio n of vitamin Ddeficien cy: an Endocrine Society clinical practiceg uideline. JCEM. 2010; 96(7):191 1-30.Perf ormed at: - [facility] [id number] Pipe Foreman: Vega Burdick PhD, Phone: [phone] 1927:VIT D 25-OH TOT previousl y reported as: 21.1 Cobalamin (Vitamin B12) [Mass/volume] in Serum Observa Value Referen Units Interpr Notes Date tion ce etation Range Cobalamin No No No No Jan 11 (Vitamin informati informati informati informati 2017 3:29 B12) on in on in on in on in PM [Mass/vol source source source source ume] in data data data data Serum Folate [Mass/volume] in Serum or Plasma Observa Value Referen Units Interpr Notes Date tion ce etation Range Folate No No No No Jan 11 [Mass/vol informati informati informati informati 2016 3:29 ume] in on in on in on in on in PM Serum or source source source source Plasma data data data data 25-Hydroxyvitamin D [Mass/volume] in Serum or Plasma Observa Value Referen Units Interpr Notes Date tion ce etation Range 25-Hydrox No No No No Jan 11 yvitamin informati informati informati informati 2016 3:29 D on in on in on in on in PM [Mass/vol source source source source ume] in data data data data Serum or Plasma Comprehensive metabolic 2000 panel in Serum or Plasma Observa Value Referen Units Interpr Notes Date tion ce etation Range Albumin/G 1.1 - 1.8 No Normal No Jan 11 lobulin informati informati 2016 3:29 [Mass on in on in PM ratio] in source source Serum or data data Plasma Albumin 3.4 - 5.0 gm/dL Normal No Jan 11 [Mass/vol informati 2016 3:29 ume] in on in PM Serum or source Plasma data Alkaline 46 - 116 U/L Normal No Jan 11 phosphata informati 2016 3:29 se on in PM [Enzymati source c data activity/ volume] in Serum or Plasma Bilirubin 0.2 - 1.0 mg/dL Normal No Jan 11 .total informati 2016 3:29 [Mass/vol on in PM ume] in source Serum or data Plasma Urea 7 - 18 mg/dL Normal No Jan 11 nitrogen informati 2016 3:29 [Mass/vol on in PM ume] in source Serum or data Plasma Calcium 8.5 - mg/dL Normal No Jan 11 [Mass/vol 10.1 informati 2016 3:29 ume] in on in PM Serum or source Plasma data Chloride 98 - 107 mmoL/L Normal No Jan 11 [Moles/vo informati 2017 3:29 lume] in on in PM Serum or source Plasma data Carbon 21.0 - mmoL/L Normal No Jan 11 dioxide, 32.0 informati 2017 3:29 total on in PM [Moles/vo source lume] in data Serum or Plasma Creatinin 0.55 - mg/dL Normal No Jan 11 e 1.02 informati 2017 3:29 [Mass/vol on in PM ume] in source Serum or data Plasma Estimated 59- ML/MIN No REFERENCE Jan 11 informati RANGE: 2017 3:29 glomerula on in >60 PM r source ML/MIN/1. filtratio data 73 SQUARE n rate METERSIf (GF this patient is -A merican, then multiply theresult by 1.210. Globulin 1.3 - 3.2 gm/dL Normal No Jan 11 [Mass/vol informati 2016 3:29 ume] in on in PM Serum source data Glucose 74 - 106 mg/dL High No Jan 11 [Mass/vol informati 2016 3:29 ume] in on in PM Serum or source Plasma data Potassium 3.5 - 5.1 mmoL/L Low No Jan 112016 3:29 [Moles/vo on in PM lume] in source Serum or data Plasma Sodium 136 - 145 mmoL/L Normal No Jan 11 [Moles/vo inform2016 3:29 lume] in on in PM Serum or source Plasma data Aspartate 15 - 37 U/L Normal No Jan 112016 3:29 aminotran on in PM sferase source [Enzymati data c activity/ volume] in Serum or Plasma Alanine 12 - 78 U/L Normal No Jan 11 aminotran 2016 3:29 sferase on in PM [Enzymati source c data activity/ volume] in Serum or Plasma Protein 6.4 - 8.2 gm/dL Normal No Jan 11 [Mass/vol informati 2016 3:29 ume] in on in PM Serum or source Plasma data Thyroxine (T4) [Mass/volume] in Serum or Plasma Observa Value Referen Units Interpr Notes Date ti ce etation Range Thyroxine 4.7 - ug/dl Normal No Jan 11 (T4) 13.3 2016 3:29 [Mass/vol on in PM ume] in source Serum or data Plasma Thyrotropin [Units/volume] in Serum or Plasma Observa Value Referen Units Interpr Notes Date ti ce etation Range Thyrotrop 0.358 - uIU/ml No No Jan 11 in 3.740 informati informati 2016 3:29 [Units/vo on in on in PM lume] in source source Serum or data data Plasma CBC W Auto Differential panel in Blood Observa Value Referen Units Interpr Notes Date ti ce etation Range Basophils 0 - 0.2 K/MM3 Normal No Jan 112016 3:29 [#/volume on in PM ] in source Blood by data Automated count Basophils 0.1 - 2.0 % Normal No Jan 11 informati 2016 3:29 leukocyte on in PM s in source Blood by data Automated count Eosinophi 0.0 - 0.4 K/mm3 Normal No Jan 11 ls informati 2016 3:29 [#/volume on in PM ] in source Blood by data Automated count Eosinophi 0.1 - % Normal No Jan 11 ls/100 12.0 informati 2016 3:29 leukocyte on in PM s in source Blood by data Automated count Granulocy 1.8 - 7.8 K/mm3 High No Jan 11 lisa informati 2016 3:29 [#/volume on in PM ] in source Blood by data Automated count Granulocy 37.0 - % Normal No Jan 11 lisa/100 80.0 informati 2016 3:29 leukocyte on in PM s in source Blood by data Automated count Hematocri 37.0 - % Normal No Jan 11 t [Volume 47.0 ati 2016 3:29 on in PM Fraction] source of Blood data Hemoglobi 12.2 - g/dL Normal No Jan 11 n 16.2 informati 2016 3:29 [Mass/vol on in PM ume] in source Blood data Lymphocyt 0.7 - 4.5 K/mm3 Normal No Jan 11 es informati 2016 3:29 [#/volume on in PM ] in source Unspecifi data ed specimen by Automated count Lymphocyt 10 - 50.0 % Normal No Jan 11 es 2016 3:29 [#/volume on in PM ] in source Unspecifi data ed specimen by Automated count Erythrocy 27 - 31.2 pg High No Jan 11 te mean informati 2016 3:29 corpuscul on in PM ar source hemoglobi data n [Entitic mass] Erythrocy 31.8 - g/dl Normal No Jan 11 te mean 35.4 informati 2016 3:29 corpuscul on in PM ar source hemoglobi data n concentra tion [Mass/vol ume] by Automated count Erythrocy 82.2 - fl Normal No Jan 11 te mean 97.8 informati 2016 3:29 corpuscul on in PM ar volume source [Entitic data volume] by Automated count Monocytes 0.1 - 1.0 K/mm3 Normal No Jan 11 informati 2016 3:29 [#/volume on in PM ] in source Blood by data Automated count Monocytes 1.7 - 9.3 % Normal No Jan 11 /100 informati 2017 3:29 leukocyte on in PM s in source Blood by data Automated count Platelet 7.4 - fl Normal No Jan 11 mean 10.4 informati 2016 3:29 volume on in PM [Entitic source volume] data in Blood by Automated count Platelets 142 - 424 K/mm3 Normal No Jan 11 informati 2016 3:29 [#/volume on in PM ] in source Blood data Erythrocy 4.2 - 5.4 M/mm3 Normal No Jan 11 lisa informati 2016 3:29 [#/volume on in PM ] in source Amniotic data fluid Erythrocy 11.5 - % Normal No Jan 11 te 17.5 informati 2016 3:29 distribut on in PM ion width source [Entitic data volume] by Automated count Leukocyte 4.8 - K/MM3 High No Jan 11 s 10.8 informati 2016 3:29 [#/volume on in PM ] in source Blood data
--- OUTSIDE RECORDS SUMMARY | 2017-04-14 18:20 | External Medical Summary Rpt ---
Author Author RORY Kendall, [employer]ORY [employer] Organization [employer] Address Unknown Phone Unavailable [...] [facility] PM [Mass/vol source ume] in data [place] [address] [place] [id number] Seat Covers Trimmer: Vega Burdick PhD, Phone: [phone] 8:ANTOINETTE MIN B12 previousl y reported as: [...] been Serum or defined Plasma by the [place] [facility] and an Endocrine Society practice guideline as alevel of serum 25-OH vitamin D less than 20 ng/mL (1,2).The Endocrine Society went on to further define vitamin Dinsuffic iency as a level between 21 and 29 ng/mL (2).1. IOM (Institut e of Medicine) . 2010. Dietary reference intakes for calcium and D. [place]: [employer].2. Bayron MF, [place], Mary Velazco GOODE, et al.Evalua tion, treatment , and preventio n of vitamin Ddeficien cy: an Endocrine Society clinical practiceg uideline. JCEM. 2010; 96(7):191 1-30.Perf ormed at: - [facility] [id number] Seat Covers Trimmer: Vega Burdick PhD, Phone: [phone] 1927:VIT D 25-OH TOT previousl y reported [...]
[2017-05-01] MEDS ORDERED: ZOFRAN24 MG (13:53)
== END 2017-04-12 22:33 | disposition home or self-care (01) ==
LOC: ER 21:13
PROC: 2W3RX1Z Immobilization of Left Lower Leg using Splint (ICD-10-PCS; principal; 2017-04-12)
DX: S80.852A Superficial foreign body, left lower leg, initial encounter (principal); S93.602A Unspecified sprain of left foot, initial encounter; F17.210 Nicotine dependence, cigarettes, uncomplicated; F41.8 Other specified anxiety disorders; Z88.2 Allergy status to sulfonamides; W01.0XXA Fall on same level from slipping, tripping and stumbling without subsequent striking against object, initial encounter; Y92.009 Unspecified place in unspecified non-institutional (private) residence as the place of occurrence of the external cause